=== PATIENT | male | born 2005 | race Caucasian/White ===

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

== ENCOUNTER 2024-01-31 10:46 | Emergency (ER) | payer MEDICAID ==
[~2024-01-31] VITALS: Ht 177.8 cm; Wt 96.5 kg
[~2024-01-31 10:46] MED LIST: ACET-1304 PO; AZITTAB PO; CEFD300C2 PO; NAP500T PO; PRED20TA2 PO; PSEU1SYP6 PO
[2024-01-31] MEDS ORDERED: BACDST PO (14:56)
[2024-01-31] MEDS ORDERED: IBUP-1455 PO (14:56)
[2024-01-31 15:06] VITALS: BP 127/74; PULSE 77; RESP 16; TEMP 98.5; O2SAT 96
[2024-01-31] MEDS: IBUPROFEN 800 MG TAB PO ONE (15:08)
== END 2024-01-31 15:07 | disposition home or self-care (01) ==
LOC: ER 10:46
DX: L05.01 Pilonidal cyst with abscess (principal); Z79.899 Other long term (current) drug therapy
CPT/HCPCS: 10060; 10080

== ENCOUNTER 2024-02-02 08:54 | Emergency (ER) | payer MEDICAID ==
[~2024-02-02] VITALS: Ht 177.8 cm; Wt 96.1 kg
[~2024-02-02 08:54] MED LIST changes: +BACDST PO; +IBUP-1455 PO
[2024-02-02 09:44] VITALS: BP 135/70; PULSE 80; RESP 16; TEMP 97.8; O2SAT 98
== END 2024-02-02 09:49 | disposition home or self-care (01) ==
LOC: ER 08:54
DX: Z48.00 Encounter for change or removal of nonsurgical wound dressing (principal)

== ENCOUNTER 2024-08-11 15:14 | Emergency (ER) | payer MEDICAID ==
[~2024-08-11] VITALS: Ht 180.3 cm; Wt 102.0 kg
[2024-08-11 15:26] VITALS: BP 131/86; PULSE 105; RESP 18; TEMP 98.1; O2SAT 100
--- NOTE | 2024-08-11 15:37 | ED.PDOC ---
Altered Mental Status HPI Comments HPI: Poor Historian. 19-year-old male brought in by ambulance for evaluation of suspected overdose. Per EMS, they picked him up from [place] front of [address] with the family was. They do not know exactly what he overdosed on. They gave the patient Narcan in the field 2.5 intranasally which helped him regained consciousness. Patient was initially unresponsive with stable vital signs. No history of fall or trauma. Per mom: No reported fall or trauma. Patient appeared to be altered and confused and almost unresponsive. Mom administered Narcan and with the ambulanc e arrived they administered another dose of Narcan intranasally. Patient was smoking a Bong with his cousin that had wax Past Medical History: Drug induced psychosis Past Surgical History: Denies any Patient vapes nicotine and smokes marijuana REVIEW OF SYSTEMS: CONSTITUTIONAL: Denies acute: fever, diaphoresis, chills, HEAD: Denies acute: headache, photophobia Eyes: Denies acute: Double vision, vision loss, eye pain, eye discharge. EARS: Denies acute: tinnitus, hearing loss, ear discharge, ear pain, THROAT: Denies acute: sore throat, swelling, difficulty swallowing , pain with swallowing, change in voice. NECK: Denies acute: neck pain, neck swelling, stiff neck. HEART: Denies acute : chest pain, palpitations, LUNGS: Denies acute: SOB, wheezing, cough, hemoptysis ABDOMEN: Denies acute: abdominal pain, Nausea, Vomiting, diarrhea, melena , hematemesis, hematochezia SKIN: Denies acute: rash, redness, lesions, itchiness. EXTREMITIES: Denies acute: calf pain, numbness, tingling, weakness, denies pain in extremity. Denies acute: Low back pain. Neuro: Denies acute: focal neurological deficit, motor or sensory focal neurological deficit, tremors, seizure like activity, loss of bowel or bladder function, cauda equina like symptoms. : Denies acute: dysuria, hematuria, flank pain, increase in urinary frequency. PSYCH: Denies acute: hallucination, suicidal ideation, homicidal ideation. PHYSICAL EXAM: General: no acute distress, awake and alert. Head: normocephalic, atraumatic. Neck: supple, trachea is midline, no swelling. Throat: Normal phonation. Eyes:, no erythema, no purulent discharge, no proptosis, no icterus. Heart: regular rate, regular rhythm, no significant murmur appreciated. Lungs: no apparent respiratory distress, No wheezing, no rhonchi, no crackles. No stridors Clear to auscultation bilaterally. Abdomen: non tender to palpation, non distended, soft, no guarding, no rebound, + bowel sounds. Neuro: Awake, Alert, oriented to name, self, situation, follows commands GCS=15. Speech is normal. Skin: no petechia, no purpura, no cyanosis, non-pale, not jaundice. Lower extremities: --no - Pitting edema no deformity, no focal swelling, no calf TTP. Makes eye contact. moves all four extremities. Face: no apparent facial droop. Stroke: finger to nose cerebellar testing is intact. No pronator drift. Symmetrical brush and broom clipper muscle strength b/l PERRLA, EOM-I CN 2-12 are grossly intact, Pedal pulses are palpable. No nystagmus. No nuchal rigidity, Kernig's sign, Brudzinski's sign, no meningeal signs. ED COURSE: Chief Complaint: Overdose Time Seen by MD: 15:15 Primary Care Provider: NONE Reviewed Notes: Nurses Notes, Medications, Allergies Allergies: Coded Allergies: NO KNOWN ALLERGIES (Unverified , 06/09/21) Home Meds Active Scripts Ibuprofen Micronized (Ibuprofen) 800 Mg Tab, 800 MG PO Q8HPRN PRN, #20 TAB Prov:FRANCISCO JONES [facility] 01/31/24 Sulfamethoxazole W/Trimethopri (Bactrim Ds Tablet) 1 Tab Tb, 1 TAB PO BID for 7 Days, #14 TAB Prov:FRANCISCO JONES [facility] 01/31/24 Naproxen (NAPROSYN TABLET) 500 Mg Tb, 1 TAB PO BID for 5 Days, #10 TAB 1 Refill Prov:DEANGELO FLOWERS MD 12/26/21 Cefdinir (Cefdinir) 300 Mg Cap, 1 CAP PO BID for 5 Days, #10 CAP Prov:DEANGELO FLOWERS MD 12/26/21 Acetaminophen (Tylenol Extra Strength) 500 Mg Tab, 500 MG PO Q4HP PRN for 10 Days, #50 TAB Prov:ADALI HAMILTON INTERVENTIONIST 06/09/21 Fghzezmlxbm-Dsxmcljx-Ae (Bromphen/Pseudoephedrine 30-2-10 mg/5Ml) 1 Syp Syp, 5 ML PO TID PRN for 10 Days, #240 ML Prov:ADALI HAMILTON INTERVENTIONIST 06/09/21 Prednisone (Prednisone) 20 Mg Tab, 40 MG PO DAILY for 5 Days, #10 TAB Prov:ADALI HAMILTON INTERVENTIONIST 06/09/21 Azithromycin (Zithromax Z-Cedrick) 250 Mg Tab, 250 MG PO take as directed for 5 D ays, #6 TAB Prov:ADALI HAMILTON INTERVENTIONIST 06/09/21 Information Source: Patient, Emergency Med Personnel Mode of Arrival: Ambulatory Past Medical History PAST MEDICAL HISTORY: Denies Surgical History: Denies all surgeries Family History Family History: Reviewed,noncontributory to illness, No family hx of Cancer, No family hx of DM, No family hx of Heart roger, No family hx of HTN, No family hx ofKidney roger, No family hx of Liver roger, No family hx of Lung roger, No family hx of Stroke Social History Smoker: Non-Smoker Alcohol: Denies ETOH Use Drugs: Denies Drug Use Lives In: Home Was a procedure done? Was a procedure done?: No Differential Diagnosis (ALOC) Differential Diagnosis: Dehydration, Hypoglycemia, DKA, Encephalopathy, Meningitis, Sepsis, Hypoxemia, Seizure, Closed Head Injury, CVA, Mass Lesion, SAH, Drug Overdose, ETOH Intoxication, Heart Failure, Renal Failure X-Ray, Labs, Meds, VS Vital Signs Date Time Temp Pulse Resp B/P (MAP) Pulse Ox O2 Delivery O2 Flow Rate FiO2 08/11/24 15:26 98.1 105 18 131/86 (101) 100 98.1 08/11/24 15:19 105 Lab Test 08/11/24 17:11 08/11/24 15:45 08/11/24 15:40 Range/Units Troponin I High Sensitivity 29 9 </=54 ng/L White Blood Count 9.0 4.4-10.8 10^3/uL Red Blood Count 4.98 4.5-5.90 10^6/uL Hemoglobin 14.9 13.5-17.5 g/dL Hematocrit 42.8 41.0-53.0 % Mean Corpuscular Volume 85.9 80.0-100.0 fL Mean Corpuscular Hemoglobin 29.9 28.0-32.0 pg Mean Corpuscular Hemoglobin Concent 34.8 32.0-36.0 g/dL Red Cell Distribution Width 13.2 11.8-14.3 % Platelet Count 236 140-450 10^3/uL Mean Platelet Volume 7.2 6.9-10.8 fL Neutrophils (%) (Auto) 69.0 37.0-80.0 % Lymphocytes (%) (Auto) 19.8 10.0-50.0 % Monocytes (%) (Auto) 5.8 0.0-12.0 % Eosinophils (%) (Auto) 4.9 0.0-7.0 % Basophils (%) (Auto) 0.5 0.0-2.0 % Neutrophils # (Auto) 6.2 1.6-8.6 10 ^3/uL Lymphocytes # (Auto) 1.8 0.4-5.4 10 ^3/uL Monocytes # (Auto) 0.5 0-1.3 10 ^3/uL Eosinophils # (Auto) 0.4 0-0.8 10 ^3/uL Basophils # (Auto) 0 0-0.2 10 ^3/uL Nucleated Red Blood Cells 0.1 % Sodium Level 139 136-145 mmol/L Potassium Level 4.3 3.5-5.1 mmol/L Chloride Level 105 98-107 mmol/L Carbon Dioxide Level 29 20-31 mmol/L Anion Gap 5 5-15 Blood Urea Nitrogen 11 9-23 mg/dL Creatinine 1.12 0.700-1.30 mg/dL Glomerular Filtration Rate Calc 96 >90 mL/min BUN/Creatinine Ratio 9.8 L 10.0-20.0 Serum Glucose 138 H 74-106 mg/dL Lactic Acid Level 1.9 0.4-2.0 mmol/L Calcium Level 9.7 8.7-10.4 mg/dL Magnesium Level 1.9 1.6-2.6 mg/dL Total Bilirubin 0.7 0.2-1.0 mg/dL Aspartate Amino Transferase (AST) 30 13-40 U/L Alanine Aminotransferase (ALT) 55 H 7-40 U/L Alkaline Phosphatase 68 46-116 U/L Total Protein 7.1 5.7-8.2 g/dL Albumin 4.4 3.2-4.8 g/dL Urine Color Light-yellow Yellow Urine Clarity Clear Clear Urine pH 6.0 5.0-9.0 Urine Specific [place] 1.021 1.001-1.035 Urine Protein 1+ H Negative Urine Ketones Negative Negative Urine Blood Negative Negative /uL Urine Nitrite Negative Negative Urine Bilirubin Negative Negative Urine Urobilinogen Normal Negative mg/dL Urine Leukocyte Esterase Negative Negative /uL Urine RBC <1 0 - 3 /hpf Urine Microscopic WBC 1 0-3 /HPF Urine Squamous Epithelial Cells None seen <5 /hpf Urine Bacteria None seen None Seen /hpf Urine Hyaline Casts Few 0 - 2 /lpf Urine Mucus Few None Seen Urine Glucose Normal Normal mg/dL Urine Opiates Screen Neg NEGATIVE Urine Fentanyl Screen Pos NEGATIVE Urine Barbiturates Screen Neg NEGATIVE Urine Phencyclidine Screen Neg NEGATIVE Urine Amphetamines Screen Neg NEGATIVE Urine Benzodiazepines Screen Neg NEGATIVE Urine Cocaine Screen Neg NEGATIVE Urine Cannabinoids Screen Pos NEGATIVE Current Medications Medications (Trade) Dose Ordered Sig/Ene Route Start Time Stop Time Status Last Admin Naloxone HCl (Narcan) 2 mg ONCE ONCE IV 08/11/24 15:30 08/11/24 15:31 DC 08/11/24 16:15 Sodium Chloride 1,000 ml @ 1,000 mls/hr Q1H ONCE IV 08/11/24 15:30 08/11/24 16:29 DC 08/11/24 16:01 Time of 1ST Reevaluation: 15:14 Reevaluation 1ST: Improved Patient Education/Counseling: Diagnosis, Treatment Family Education/Counseling: Other Comments Patient presented with the above HPI.---overdose---workup was initiated. patient was found with the above mentioned diagnosis. No reported head injury or trauma. the following medications were ordered: please refer to order lists of meds and tests obtained by myself Dr. Morales. Patient ED course and VS have been stabilized. Patient has been reassessed in the ED and remained in a stable condition. Pertinent incidental findings were discussed with the patient and/or family. Patient/family voices understanding and is agreeable with plan. Patient has been observed in the ED adequate length of time to insure improvement/stability. Escalation of care considered: Consideration of escalation to observation or admission Patient left against medical advice All the reports of any imaging studies that were ordered by myself were reviewed by myself. Departure 1 Departure Time of Disposition: 18:25 Impression: Primary Impression: Drug overdose Additional Impressions: Overdose of fentanyl Altered level of consciousness Left against medical advice Disposition: LEFT AGAINST MEDICAL ADVICE Condition: Guarded Additional Instructions: Left against medical advice Discharged With: Self Critical Care Note Critical Care Time?: Yes (35 min-critical care time only) SARI MORALES DO Aug 11, 2024 15:37
[2024-08-11] MEDS: SODIUM CHLORIDE 0.9% 1,000 ML IV ONE (16:01)
[2024-08-11 16:02] LABS: Basophils # (auto) 0 10 ^3/uL (0-0.2); Basophils % (auto) 0.5 % (0.0-2.0); Eosinophils # (auto) 0.4 10 ^3/uL (0-0.8); Eosinophils % (auto) 4.9 % (0.0-7.0); Hematocrit 42.8 % (41.0-53.0); Hemoglobin 14.9 g/dL (13.5-17.5); Lymphocytes # (auto) 1.8 10 ^3/uL (0.4-5.4); Lymphocytes % (auto) 19.8 % (10.0-50.0); Mean Corpuscular Hemoglobin 29.9 pg (28.0-32.0); Mean Corpuscular Hgb Conc. 34.8 g/dL (32.0-36.0); Mean Corpuscular Volume 85.9 fL (80.0-100.0); Monocytes # (auto) 0.5 10 ^3/uL (0-1.3); Monocytes % (auto) 5.8 % (0.0-12.0); Neutrophils # (auto) 6.2 10 ^3/uL (1.6-8.6); Nucleated Red Blood Cells % 0.1 %; Platelet Count (auto) 236 10^3/uL (140-450); Red Blood Cells 4.98 10^6/uL (4.5-5.90); Red Cell Distribution Width 13.2 % (11.8-14.3)
[2024-08-11] MEDS: NALOXONE HCL 1MG/ML 2ML SYRINGE IV ONE (16:15)
[2024-08-11 16:21] LABS: Albumin 4.4 g/dL (3.2-4.8); Alkaline Phosphatase 68 U/L (46-116); Anion Gap 5 (5-15); Aspartate Aminotransferase 30 U/L (13-40); BUN/Creatinine Ratio 9.8 (10.0-20.0); Blood Urea Nitrogen 11 mg/dL (9-23); Calcium 9.7 mg/dL (8.7-10.4); Carbon Dioxide 29 mmol/L (20-31); Chloride 105 mmol/L (98-107); Magnesium 1.9 mg/dL (1.6-2.6); Potassium 4.3 mmol/L (3.5-5.1); Sodium 139 mmol/L (136-145); Total Protein 7.1 g/dL (5.7-8.2)
[2024-08-11 16:22] LABS: Bilirubin, Total 0.7 mg/dL (0.2-1.0)
[2024-08-11 16:23] LABS: Alanine Aminotransferase 55 U/L (7-40); Glucose 138 mg/dL (74-106)
[2024-08-11 16:48] LABS: Urine Bacteria None Seen /hpf (None Seen)
[2024-08-11 16:58] LABS: Urine Blood Negative /uL (Negative); Urine Clarity Clear (Clear); Urine Color Light-Yellow (Yellow); Urine Hyaline Cast FEW /lpf (0 - 2); Urine Mucus FEW (None Seen); Urine Protein, UAD 1+ (Negative); Urine Specific Gravity 1.021 (1.001-1.035); Urine Squamous Epithelial Cell None Seen /hpf (<5); Urine Urobilinogen Normal (Negative); Urine WBC 1 /HPF (0-3)
[2024-08-11 17:07] LABS: Amphetamine Screen, Urine Neg (NEGATIVE)
[2024-08-11 17:08] LABS: Benzodiazephine Screen, Urine Neg (NEGATIVE); Cannabinoid Screen, Urine Pos (NEGATIVE)
[2024-08-11 17:49] LABS: Barbiturate Scree,Urine Neg (NEGATIVE); Cocaine Screen, Urine Neg (NEGATIVE); Opiate Scree,Urine Neg (NEGATIVE); Phencyclidine Screen, Urine Neg (NEGATIVE)
--- NOTE | 2024-08-12 20:13 | ECG ---
[facility] Test Date: 2024-08-11 Test Time: 15:19:52 Pat Name: PAPITO LOZANO Department: ER Room: Gender: M Sales Management Trainee: CAMRON : 2005 Requested By: SARI MORALES Order Number: [id number] Reading MD: Ty Villagomez Measurements Intervals [place] Rate: 105 P: 65 [place]: 154 QRS: 97 QRSD: 89 T: -14 QT: 313 QTc: 414 Interpretive Statements Sinus tachycardia Lateral infarct, acute Electronically Signed On 08-12-2024 20:42:36 PDT by Ty Villagomez Please click the below link to view image of tracing.
== END 2024-08-11 18:10 | disposition left against medical advice (07) ==
LOC: EDBD 15:14 → ER 15:17
DX: T40.411A Poisoning by fentanyl or fentanyl analogs, accidental (unintentional), initial encounter (principal); R41.82 Altered mental status, unspecified; F17.200 Nicotine dependence, unspecified, uncomplicated; F12.90 Cannabis use, unspecified, uncomplicated; Z79.52 Long term (current) use of systemic steroids; Z79.899 Other long term (current) drug therapy; Y92.89 Other specified places as the place of occurrence of the external cause
CPT/HCPCS: 36415; 80053; 80307; 81001; 82947; 83605; 83735; 84484; 85025; 93005; 96361; 96374; 99284; J2310; J7030

== ENCOUNTER 2024-08-20 16:20 | Emergency (ER) | payer MEDICAID ==
[~2024-08-20] VITALS: Ht 180.3 cm; Wt 100.0 kg
--- NOTE | 2024-08-20 16:39 | ED.PDOC ---
SOB-HPI HPI Comments 19 y.o male presents to the ED for a chief complaint of generalized weakness associated with palpitations x 2 days. Patient presents to triage with SPO2 in the low 80's on room air, shallowing breathing and cyanotic lips. Patient was placed on 10 liters of oxygen via mask with SPO2 of 97%. Patient reports daily frequent use of Fentanyl and last used 2 days ago. Patient reports he was playing basketball for 2 hours today, friends noticed patient pale and malaise looking. Mom brought patient in. Patient was recently seen at this ED around 08/11/24 for possible OD but AMA once regaining full consciousness s/p multiple Narcan administrated by EMS, family and nursing staff at the ED. Patient at this time denies any chest pain, fever, chills, nausea, vomiting. Chief Complaint: Palpitations Time Seen by MD: 16:26 Primary Care Provider: NONE Reviewed notes: Nurses Notes, Medications, Allergies Information Source: Patient Mode of Arrival: Ambulatory Severity: Moderate Timing: Hours Duration: Since onset Context: At Rest PE Risk Factors: None History of: None Modifying Factors: Nothing Associated Signs and Symptoms: Other Past Medical History PAST MEDICAL HISTORY: Denies Surgical History: Denies all surgeries Family History Family History: Reviewed,noncontributory to illness, No family hx of Cancer, No family hx of DM, No family hx of Heart roger, No family hx of HTN, No family hx ofKidney roger, No family hx of Liver roger, No family hx of Lung roger, No family hx of Stroke Social History Smoker: Cigarettes, Other (vape) Alcohol: Occasionally Drugs: Marijuana, Methamphetamine Lives In: Home Constitutional: reports: malaise; denies: chills, diaphoresis, fatigue, fever, sweats, weakness, others EENTM: denies: blurred vision, double vision, ear bleeding, ear discharge, ear drainage, ear pain, ear ringing, eye pain, eye redness, hearing loss, mouth pain, mouth swelling, nasal discharge, nose bleeding, nose congestion, nose pain, photophobia, tearing, throat pain, throat swelling, voice changes, others Respiratory: denies: cough, hemoptysis, orthopnea, SOB at rest, shortness of breath, SOB with excertion, stridor, wheezing, others Cardiovascular: reports: palpitations; denies: chest pain, dizzy spells, diaphoresis, Dyspnea on exertion, edema, irregular heart beat, left arm pain, lightheadedness, PND, syncope, others Gastrointestinal: denies: abdomen distended, abdominal pain, blood streaked bowels, constipated, diarrhea, dysphagia, difficulty swallowing, hematemesis, melena, nausea, poor appetite, poor fluid intake, rectal bleeding, rectal pain, vomiting, others Genitourinary: denies: burning, dysuria, flank pain, frequency, hematuria, incontinence, penile discharge, penile sore, pain, testicle pain, testicle swelling, urgency, others Neurological: denies: dizziness, fainting, headache, left sided numbness, left sided weakness, numbness, paresthesia, pre-existing deficit, right sided numbness, right sided weakness, seizure, speech problems, tingling, tremors, weakness, others Musculoskeletal: denies: back pain, gout, joint pain, joint swelling, muscle pain, muscle stiffness, neck pain, others Integumetry: denies: bruises, change in color, change in hair/nails, dryness, laceration, lesions, lumps, rash, wounds, others Allergic/Immunocompromised: denies: Difficulty Healing, Frequent Infections, Hives, Itching, others Hematologic/Lymphatic: denies: anemia, blood clots, easy bleeding, easy bruising, swollen glands, others Endocrine: denies: excessive hunger, excessive sweating, excessive thirst, excessive urination, flushing, intolerance to cold, intolerance to heat, unexplained weight gain, unexplained weight loss, others Psychiatric: denies: anxiety, bipolar disorder, depression, hopeless, panic disorder, schizophrenia, sleepless, suicidal, others All Other Systems: Reviewed and Negative Physical Exam General Appearance: Other (The patient was somewhat sleepy upon arrival) HEENT: Normal ENT Inspection, Pharynx Normal, TMs Normal Neck: Full Range of Motion, Non-Tender, Normal, Normal Inspection Respiratory: Chest Non-Tender, Lungs Clear, No Accessory Muscle Use, No Respiratory Distress, Normal Breath Sounds Cardiovascular: No Edema, No JVD, No Murmur, No Gallop, Normal Peripheral Pulses, Regular Rate/Rhythm Breast Exam: Deferred Gastrointestinal: No Organomegaly, Non Tender, No Pulsatile Mass, Normal Bowel Sounds, Soft Genitalia: Deferred Pelvic: Deferred Rectal: Deferred Extremities: No calf tenderness, Normal capillary refill, Normal inspection, Normal range of motion, Non-tender, No pedal edema Musculoskeletal : Apperance: Normal Neurologic: Alert, 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 Was a procedure done?: No Differential Dx Differential Diagnosis: Hyperventilation, Respiratory Distress, URI Comments Drug toxicity, Drug overdose, tachycardia, hypoxemia X-Ray, Labs, Meds, VS Vital Signs Date Time Temp Pulse Resp B/P (MAP) Pulse Ox O2 Delivery O2 Flow Rate FiO2 08/20/24 18:38 102 08/20/24 18:00 94 20 118/63 (81) 97 08/20/24 17:18 108 08/20/24 16:46 97.6 126 12 106/54 (71) 97 97.6 08/20/24 16:46 127 12 97 Simple Mask* 8 60 08/20/24 16:39 104 08/20/24 16:31 97.9 115 12 110/65 (80) 83 97.9 08/20/24 16:25 104 Lab Test 08/20/24 16:32 Range/Units White Blood Count 8.7 4.4-10.8 10^3/uL Red Blood Count 5.07 4.5-5.90 10^6/uL Hemoglobin 15.0 13.5-17.5 g/dL Hematocrit 43.4 41.0-53.0 % Mean Corpuscular Volume 85.6 80.0-100.0 fL Mean Corpuscular Hemoglobin 29.6 28.0-32.0 pg Mean Corpuscular Hemoglobin Concent 34.6 32.0-36.0 g/dL Red Cell Distribution Width 12.9 11.8-14.3 % Platelet Count 288 140-450 10^3/uL Mean Platelet Volume 7.4 6.9-10.8 fL Neutrophils (%) (Auto) 58.5 37.0-80.0 % Lymphocytes (%) (Auto) 28.8 10.0-50.0 % Monocytes (%) (Auto) 4.7 0.0-12.0 % Eosinophils (%) (Auto) 7.1 H 0.0-7.0 % Basophils (%) (Auto) 0.9 0.0-2.0 % Neutrophils # (Auto) 5.1 1.6-8.6 10 ^3/uL Lymphocytes # (Auto) 2.5 0.4-5.4 10 ^3/uL Monocytes # (Auto) 0.4 0-1.3 10 ^3/uL Eosinophils # (Auto) 0.6 0-0.8 10 ^3/uL Basophils # (Auto) 0.1 0-0.2 10 ^3/uL Nucleated Red Blood Cells 0.1 % Urine Color Yellow Yellow Urine Clarity Turbid H Clear Urine pH 6.0 5.0-9.0 Urine Specific [place] 1.025 1.001-1.035 Urine Protein 1+ H Negative Urine Ketones Trace Negative Urine Blood Negative Negative /uL Urine Nitrite Negative Negative Urine Bilirubin Negative Negative Urine Urobilinogen Normal Negative mg/dL Urine Leukocyte Esterase Negative Negative /uL Urine RBC 1 0 - 3 /hpf Urine Microscopic WBC 3 0-3 /HPF Urine Squamous Epithelial Cells Few <5 /hpf Urine Bacteria None seen None Seen /hpf Urine Hyaline Casts Few 0 - 2 /lpf Urine Granular Casts Few 0 /lpf Urine Mucus Few None Seen Urine Glucose Trace Normal mg/dL Sodium Level 138 136-145 mmol/L Potassium Level 4.4 3.5-5.1 mmol/L Chloride Level 99 98-107 mmol/L Carbon Dioxide Level 30 20-31 mmol/L Anion Gap 9 5-15 Blood Urea Nitrogen 12 9-23 mg/dL Creatinine 1.71 H 0.700-1.30 mg/dL Glomerular Filtration Rate Calc 58 >90 mL/min BUN/Creatinine Ratio 7.0 L 10.0-20.0 Serum Glucose 182 H 74-106 mg/dL Calcium Level 10.0 8.7-10.4 mg/dL Total Bilirubin 1.0 0.2-1.0 mg/dL Aspartate Amino Transferase (AST) 49 H 13-40 U/L Alanine Aminotransferase (ALT) 78 H 7-40 U/L Alkaline Phosphatase 72 46-116 U/L Troponin I High Sensitivity 14 </=54 ng/L Total Protein 7.8 5.7-8.2 g/dL Albumin 4.8 3.2-4.8 g/dL Urine Opiates Screen Neg NEGATIVE Urine Fentanyl Screen Pos NEGATIVE Urine Barbiturates Screen Neg NEGATIVE Urine Phencyclidine Screen Neg NEGATIVE Urine Amphetamines Screen Neg NEGATIVE Urine Benzodiazepines Screen Neg NEGATIVE Urine Cocaine Screen Neg NEGATIVE Urine Cannabinoids Screen Pos NEGATIVE Plasma/Serum Blood Alcohol < 3.0 <10 mg/dL CHEST RADIOGRAPH IMPRESSION: 1. No acute disease. The patient's urine tox is positive for fentanyl and marijuana The patient was urine test is negative for infection The chemistry panel is within normal limits except for mild hyperglycemia The patient CBC is within normal limits At this time, the patient was being discharged and will follow up with the primary care doctor The patient was given substance abuse counseling The patient was now awake and alert and able to answer questions. Images Reviewed?: Images reviewed and evaluated by me Time of 1ST Reevaluation: 16:33 Reevaluation 1ST: Unchanged Patient Education/Counseling: Diagnosis, Treatment, Prognosis, Need For Follow Up Family Education/Counseling: No Family Present Departure 1 Departure Time of Disposition: 19:59 Impression: Primary Impression: Polysubstance abuse Disposition: 01 HOME / SELF CARE / HOMELESS Condition: Fair Discharged With: Self Critical Care Note Critical Care Time?: No Stability Stability form required: No I personally scribed for RJ DUBOSE MD ([email or web address]) on 08/20/24 at 16:39. Electronically submitted by Dee Mohan ([facility] I personally scribed for RJ DUBOSE MD ([email or web address]) on 08/20/24 at 19:31. Electronically submitted by Dee Mohan ([facility] RJ DUBOSE MD Aug 20, 2024 16:39
[2024-08-20 16:46] VITALS: PULSE 127; RESP 12; O2SAT 97
[2024-08-20 17:06] LABS: Basophils # (auto) 0.1 10 ^3/uL (0-0.2); Basophils % (auto) 0.9 % (0.0-2.0); Eosinophils # (auto) 0.6 10 ^3/uL (0-0.8); Eosinophils % (auto) 7.1 % (0.0-7.0); Hematocrit 43.4 % (41.0-53.0); Lymphocytes # (auto) 2.5 10 ^3/uL (0.4-5.4); Lymphocytes % (auto) 28.8 % (10.0-50.0); Mean Corpuscular Hemoglobin 29.6 pg (28.0-32.0); Mean Corpuscular Hgb Conc. 34.6 g/dL (32.0-36.0); Mean Corpuscular Volume 85.6 fL (80.0-100.0); Monocytes # (auto) 0.4 10 ^3/uL (0-1.3); Monocytes % (auto) 4.7 % (0.0-12.0); Neutrophils # (auto) 5.1 10 ^3/uL (1.6-8.6); Neutrophils % (auto) 58.5 % (37.0-80.0); Nucleated Red Blood Cells % 0.1 %; Platelet Count (auto) 288 10^3/uL (140-450); Red Blood Cells 5.07 10^6/uL (4.5-5.90); Red Cell Distribution Width 12.9 % (11.8-14.3); White Blood Cell 8.7 10^3/uL (4.4-10.8)
[2024-08-20 17:07] LABS: Albumin 4.8 g/dL (3.2-4.8); Alkaline Phosphatase 72 U/L (46-116); Anion Gap 9 (5-15); Blood Urea Nitrogen 12 mg/dL (9-23); Carbon Dioxide 30 mmol/L (20-31); Chloride 99 mmol/L (98-107); Potassium 4.4 mmol/L (3.5-5.1); Sodium 138 mmol/L (136-145); Total Protein 7.8 g/dL (5.7-8.2)
--- NOTE | 2024-08-20 17:10 | DVH ---
CHEST RADIOGRAPH Indication: aloc Technique: Single frontal view of the chest was obtained COMPARISON: None FINDINGS: Lines and Tubes: None Lungs: Clear Pleura: No effusion. No pneumothorax. Cardiomediastinal contours: Unremarkable Bones: Unremarkable IMPRESSION: 1. No acute disease.
[2024-08-20 17:19] LABS: Glucose 182 mg/dL (74-106)
[2024-08-20 17:20] LABS: Alanine Aminotransferase 78 U/L (7-40); Aspartate Aminotransferase 49 U/L (13-40); Blood Alcohol < 3.0 mg/dL (<10)
--- NOTE | 2024-08-20 17:21 | ECG ---
[facility] Test Date: 2024-08-20 Test Time: 17:18:56 Pat Name: PAPITO LOZANO Department: ED Room: Gender: M Securities Supervisor: ROX : 2005 Requested By: RJ DUBOSE Order Number: [id number] Reading MD: Ty Villagomez Measurements Intervals [place] Rate: 108 P: 54 [place]: 133 QRS: 84 QRSD: 91 T: -6 QT: 324 QTc: 435 Interpretive Statements Sinus tachycardia Borderline T abnormalities, inferior leads Baseline wander in lead(s) II,V3 Electronically Signed On 08-23-2024 13:25:43 PDT by Ty Villagomez Please click the below link to view image of tracing.
[2024-08-20 18:37] LABS: Urine Bacteria None Seen /hpf (None Seen)
[2024-08-20 18:52] LABS: Urine Blood Negative /uL (Negative); Urine Clarity Turbid (Clear); Urine Color Yellow (Yellow); Urine Hyaline Cast FEW /lpf (0 - 2); Urine Mucus FEW (None Seen); Urine Protein, UAD 1+ (Negative); Urine Specific Gravity 1.025 (1.001-1.035); Urine Squamous Epithelial Cell FEW /hpf (<5); Urine Urobilinogen Normal (Negative); Urine WBC 3 /HPF (0-3)
[2024-08-20 18:59] LABS: Amphetamine Screen, Urine Neg (NEGATIVE); Benzodiazephine Screen, Urine Neg (NEGATIVE); Cannabinoid Screen, Urine Pos (NEGATIVE)
[2024-08-20 19:06] LABS: Barbiturate Scree,Urine Neg (NEGATIVE); Cocaine Screen, Urine Neg (NEGATIVE); Opiate Scree,Urine Neg (NEGATIVE); Phencyclidine Screen, Urine Neg (NEGATIVE)
[2024-08-20 20:00] VITALS: BP 121/65; TEMP 97.6
[2024-08-20 20:15] VITALS: PULSE 88; RESP 20; O2SAT 94
--- NOTE | 2024-08-23 09:20 | ECG ---
[facility] Test Date: 2024-08-21 Test Time: 22:56:38 Pat Name: PAPITO LOZANO Department: ED Room: Gender: M Strategic Planning Specialist: ED : 2005 Requested By: RJ DUBOSE Order Number: [id number] Reading MD: Ty Villagomez Measurements Intervals [place] Rate: 112 P: 139 NC: 139 QRS: 122 QRSD: 92 T: -28 QT: 337 QTc: 460 Interpretive Statements Sinus or ectopic atrial tachycardia Probable left atrial enlargement Left posterior fascicular block Inferior infarct, age indeterminate Lateral infarct, acute (LAD) Baseline wander in lead(s) V1 Electronically Signed On 08-23-2024 14:06:19 PDT by Ty Villagomez Please click the below link to view image of tracing.
== END 2024-08-20 20:25 | disposition home or self-care (01) ==
LOC: ER 16:20
DX: F19.10 Other psychoactive substance abuse, uncomplicated (principal); F17.290 Nicotine dependence, other tobacco product, uncomplicated; F12.90 Cannabis use, unspecified, uncomplicated; R53.1 Weakness; R00.2 Palpitations; Z79.899 Other long term (current) drug therapy
CPT/HCPCS: 36415; 71045; 80053; 80307; 80320; 81001; 84484; 85025; 93005

== ENCOUNTER 2024-08-21 22:39 | Inpatient (IN) | payer MEDICAID ==
[~2024-08-21] VITALS: Ht 177.8 cm; Wt 99.4 kg
[2024-08-21 23:07] VITALS: PULSE 112; RESP 17; O2SAT 88
[2024-08-21] MEDS: NALOXONE HCL 1MG/ML 2ML SYRINGE IV ONE (23:10)
[2024-08-21] MEDS: ONDANSETRON HCL 4 MG/2 ML VIAL ONE (23:12)
[2024-08-21] MEDS: methylPREDNISolone SOD SUCC 125 MG/2 ML VL ONE (23:13)
[2024-08-21] MEDS: ONDANSETRON HCL 4 MG/2 ML VIAL IV ONE (23:14)
[2024-08-21] MEDS: methylPREDNISolone SOD SUCC 125 MG/2 ML VL IV ONE (23:16)
[2024-08-21] MEDS: SODIUM CHLORIDE 0.9% 1,000 ML IV ONE (23:16)
--- NOTE | 2024-08-22 00:01 | DVH ---
CHEST RADIOGRAPH Indication: SOB Technique: Single frontal view of the chest was obtained COMPARISON: XY CHEST PORTABLE on DOS: 08/20/24 FINDINGS: Lines and Tubes: None Lungs: Lung volumes are low with mild bibasilar subsegmental atelectasis. Pleura: No effusion. No pneumothorax. Cardiomediastinal contours: Unremarkable Bones: Unremarkable IMPRESSION: Low lung volumes. Mild bibasilar subsegmental atelectasis.
--- NOTE | 2024-08-22 03:53 | ED.PDOC ---
History of Present Illness HPI Comments 19 y/o obese M, with a history of polysubstance abuse, is BIBA for c/o ALOC w/decrease responsiveness s/p substance overdose, today. Per EMS report, patient's family called after finding patient in altered state, earlier, this evening. Patient was noted to have been found on scene with family performing CPR amidst pulse present and patient haivng agonal breathing and a SpO2 of 75%RA. EMS then endorses on giving the patient 2mg Narcan IV, with positive response, and placing him on 15LPM NRB en route. Upon arrival to ED, tia admitst to Fentanyl use, earlier, with no other reported associated symptoms at this time. Chief Complaint: Overdose Time Seen by MD: 23:10 Primary Care Provider: unknown Reviewed Notes: Nurses Notes, Insurance Administrative Assistant Notes, Medications, Allergies Allergies: Coded Allergies: NO KNOWN ALLERGIES (Unverified , 06/09/21) Home Meds Active Scripts Ibuprofen Micronized (Ibuprofen) 800 Mg Tab, 800 MG PO Q8HPRN PRN, #20 TAB Prov:FRANCISCO JONES PAC 01/31/24 Sulfamethoxazole W/Trimethopri (Bactrim Ds Tablet) 1 Tab Tb, 1 TAB PO BID for 7 Days, #14 TAB Prov:FRANCISCO JONES PAC 01/31/24 Naproxen (NAPROSYN TABLET) 500 Mg Tb, 1 TAB PO BID for 5 Days, #10 TAB 1 Refill Prov:DEANGELO FLOWERS MD 12/26/21 Cefdinir (Cefdinir) 300 Mg Cap, 1 CAP PO BID for 5 Days, #10 CAP Prov:DEANGELO FLOWERS MD 12/26/21 Acetaminophen (Tylenol Extra Strength) 500 Mg Tab, 500 MG PO Q4HP PRN for 10 Days, #50 TAB Prov:ADALI HAMILTON ADMITTING OFFICER 06/09/21 Ehtiswfyacy-Hwljcakr-Bx (Bromphen/Pseudoephedrine 30-2-10 mg/5Ml) 1 Syp Syp, 5 ML PO TID PRN for 10 Days, #240 ML Prov:ADALI HAMILTON ADMITTING OFFICER 06/09/21 Prednisone (Prednisone) 20 Mg Tab, 40 MG PO DAILY for 5 Days, #10 TAB Prov:ADALI HAMILTON ADMITTING OFFICER 06/09/21 Azithromycin (Zithromax Z-Cedrick) 250 Mg Tab, 250 MG PO take as directed for 5 Days, #6 TAB Prov:ADALI HAMILTON ADMITTING OFFICER 06/09/21 Information Source: Patient, Emergency Med Personnel Mode of Arrival: EMS Severity: Moderate Timing: Hours Duration: Since onset Prehospital treatment: 12 Lead EKG, Accucheck, [employer] Operator, Other (Narcan ) Past Medical History Past Medical History (Other): obesity Surgical History: Denies all surgeries Family History Family History: Reviewed,noncontributory to illness, No family hx of Cancer, No family hx of DM, No family hx of Heart roger, No family hx of HTN, No family hx ofKidney roger, No family hx of Liver roger, No family hx of Lung roger, No family hx of Stroke Social History Smoker: Cigarettes, Other (vape ) Alcohol: Occasionally Drugs: Marijuana, Methamphetamine, Other (Fentanly) Lives In: Home All Other Systems: Reviewed and Negative (Comprehensive systems review obtained and negative except for what is stated in the HPI.) Physical Exam General Appearance: No Apparent Distress, Obese HEENT: Normal ENT Inspection, Pharynx Normal, TMs Normal Neck: Full Range of Motion, Non-Tender, Normal, Normal Inspection Respiratory: Other (hypoxic ) Cardiovascular: No Edema, No JVD, No Murmur, No Gallop, Normal Peripheral Pulses, Regular Rate/Rhythm Breast Exam: Deferred Gastrointestinal: No Organomegaly, Non Tender, No Pulsatile Mass, Normal Bowel Sounds, Soft Genitalia: Deferred Pelvic: Deferred Rectal: Deferred Extremities: No calf tenderness, Normal capillary refill, Normal inspection, Normal range of motion, Non-tender, No pedal edema Musculoskeletal : Extremity Location: Chest (chest wall ) Apperance: Normal, Tenderness Neurologic: Alert, sheet cutter II-XII nml as Tested, No Motor Deficits, Normal Affect, Normal Mood, No Sensory Deficits Cerebellar Function: Normal Reflexes: Normal Skin: Dry, Pallor, Warm, Other (erythema to chest wall ) Lymphatic: No Adenopathy Was a procedure done? Was a procedure done?: No Differential Dx Considerations may include: opioid overdose, substance abuse, toxic metabolic encephalopathy X-Ray, Labs, Meds, VS Vital Signs Date Time Temp Pulse Resp B/P (MAP) Pulse Ox O2 Delivery O2 Flow Rate FiO2 08/22/24 02:00 73 16 106/51 (69) 94 3/25/25 23:32 97.9 108 12 137/82 (100) 97 97.9 08/21/24 23:07 97.7 112 17 120/73 (89) 88 97.7 08/21/24 23:07 112 17 88 Non-Rebreather 15 N/A 08/21/24 22:50 99.1 119 32 113/76 (88) 90 99.1 Lab Test 08/22/24 05:11 Range/Units White Blood Count 15.0 #H 4.4-10.8 10^3/uL Red Blood Count 5.48 4.5-5.90 10^6/uL Hemoglobin 16.2 13.5-17.5 g/dL Hematocrit 46.5 41.0-53.0 % Mean Corpuscular Volume 84.9 80.0-100.0 fL Mean Corpuscular Hemoglobin 29.5 28.0-32.0 pg Mean Corpuscular Hemoglobin Concent 34.8 32.0-36.0 g/dL Red Cell Distribution Width 12.6 11.8-14.3 % Platelet Count 299 140-450 10^3/uL Mean Platelet Volume 7.4 6.9-10.8 fL Neutrophils (%) (Auto) 94.3 H 37.0-80.0 % Lymphocytes (%) (Auto) 3.0 L 10.0-50.0 % Monocytes (%) (Auto) 2.3 0.0-12.0 % Eosinophils (%) (Auto) 0.2 0.0-7.0 % Basophils (%) (Auto) 0.2 0.0-2.0 % Neutrophils # (Auto) 14.2 H 1.6-8.6 10 ^3/uL Lymphocytes # (Auto) 0.4 0.4-5.4 10 ^3/uL Monocytes # (Auto) 0.3 0-1.3 10 ^3/uL Eosinophils # (Auto) 0 0-0.8 10 ^3/uL Basophils # (Auto) 0 0-0.2 10 ^3/uL Nucleated Red Blood Cells 0.1 % Sodium Level Pending Potassium Level Pending Chloride Level Pending Carbon Dioxide Level Pending Anion Gap Pending Blood Urea Nitrogen Pending Creatinine Pending Glomerular Filtration Rate Calc Pending BUN/Creatinine Ratio Pending Serum Glucose Pending Lactic Acid Level Pending Calcium Level Pending Current Medications Medications (Trade) Dose Ordered Sig/Ene Route Start Time Stop Time Status Last Admin Sodium Chloride 1,000 ml @ 1,000 mls/hr Q1H ONCE IV 08/22/24 00:00 08/22/24 03:41 DC 08/21/24 23:16 Naloxone HCl (Narcan) 2 mg ONCE ONCE IV 08/22/24 03:45 08/22/24 03:46 DC 08/21/24 23:10 Ondansetron HCl (Zofran) 4 mg ONCE ONCE IV 08/22/24 03:45 08/22/24 03:46 DC 08/21/24 23:14 Methylprednisolone Sodium Succinate (Solu Medrol) 125 mg ONCE ONCE IV 08/22/24 03:45 08/22/24 03:46 DC 08/21/24 23:16 [place] [id number] Ph: [phone] DIAGNOSTIC IMAGING Diagnostic Imaging Report : [id number] Signed PATIENT: PAPITO LOZANO ACCT: [id number] UNIT: [id number] : 2005 LOC: ER ROOM / BED: / AGE / SEX: 19 / M ADM STATUS: REG ER SERVICE 24 ORDERING PHYSICIAN: FRANCISCO JONES PAC PROCEDURE(s): CXRP - CHEST PORTABLE REASON: SOB ORDER NUMBER(s): [id number], ACCESSION NUMBER(s): [id number] CHEST RADIOGRAPH Indication: SOB Technique: Single frontal view of the chest was obtained COMPARISON: XY CHEST PORTABLE on DOS: 08/20/24 FINDINGS: Lines and Tubes: None Lungs: Lung volumes are low with mild bibasilar subsegmental atelectasis. Pleura: No effusion. No pneumothorax. Cardiomediastinal contours: Unremarkable Bones: Unremarkable IMPRESSION: Low lung volumes. Mild bibasilar subsegmental atelectasis. ATED BY: MIKEY RODRIGUEZ MD DICTATED DATE/TIME: 08/21/24 9997 SIGNED BY: MIKEY RODRIGUEZ MD SIGNED DATE/TIME: 08/21/24 8588 CC: Time of 1ST Reevaluation: 23:30 Reevaluation 1ST: Unchanged Patient Education/Counseling: Diagnosis, Treatment Family Education/Counseling: Diagnosis, Treatment Additional Information Previous visit documents reviewed: August 20, 2024 encounter for polysubstance abuse The following tests were ordered, and results were reviewed by me: CXR Additional Information was gathered from interviewing the following independent historians: EMS, family I reviewed and agreed with the following test results read by other providers: CXR I discussed treatment and results with medical personnel and: Patient, family Departure 1 Departure Time of Disposition: 05:50 (Patient presented as a opiate overdose unresponsive and hypoxic even on a regular. Patient received multiple rounds of Narcan began breathing in. Patient had a lot of emesis. Patient required a non-rebreather for several hours until was being able to transition to a nasal cannula. Patient is still hypoxic on room air. I am concern for aspiration we will empirically cover patient with antibiotics and admit patient for further workup) Impression: Primary Impression: Opiate overdose Qualified Codes: T40.601A - Poisoning by unspecified narcotics, accidental (unintentional), initial encounter Additional Impressions: Aspiration into respiratory tract Qualified Codes: T17.908A - Unspecified foreign body in respiratory tract, part unspecified causing other injury, initial encounter Acute respiratory failure Qualified Codes: J96.01 - Acute respiratory failure with hypoxia Disposition: ADMITTED INPATIENT Admit to: Med Surg Condition: Serious Critical Care Note Critical Care Time?: Yes Critical care comment: Acute hypoxic respiratory failure secondary to overdose Authorized and Performed by: Renata Haywood MD Total critical care time: Approximately 143 minutes Due to a high probability of clinically significant, life threatening d eterioration, the patient required my highest level of preparedness to intervene emergently and I personally spent this critical care time directly and personally managing the patient. This critical care time included obtaining a history; examining the patient; pulse oximetry; ordering and review of studies; arranging urgent treatment with development of a management plan; evaluation of patient's response to treatment; frequent reassessment; and, discussions with other providers. This critical care time was performed to assess and manage the high probability of imminent, life-threatening deterioration that could result in multi-organ failure. It was exclusive of separately billable procedures and treating other patients and teaching time. Please see my other sections and the rest of the note for further information on patient assessment and treatment. Stability Stability form required: No Heart Score Heart Score: Heart Score Response (Comments) Value History N/A 0 EKG N/A 0 Age N/A 0 Risk Factors N/A 0 Troponin N/A 0 Total 0 I personally scribed for RENATA HAYWOOD MD ([email or web address]) on 08/22/24 at 03:53. Electronically submitted by Chandu Goodwin ([email or web address]). I personally scribed for RENATA HAYWOOD MD ([email or web address]) on 08/22/24 at 03:54. Electronically submitted by Chandu Goodwin ([email or web address]). RENATA HAYWOOD MD Aug 22, 2024 03:53
[2024-08-22 05:33] LABS: Basophils # (auto) 0 10 ^3/uL (0-0.2); Basophils % (auto) 0.2 % (0.0-2.0); Eosinophils # (auto) 0 10 ^3/uL (0-0.8); Eosinophils % (auto) 0.2 % (0.0-7.0); Hematocrit 46.5 % (41.0-53.0); Hemoglobin 16.2 g/dL (13.5-17.5); Lymphocytes # (auto) 0.4 10 ^3/uL (0.4-5.4); Mean Corpuscular Hemoglobin 29.5 pg (28.0-32.0); Mean Corpuscular Hgb Conc. 34.8 g/dL (32.0-36.0); Mean Corpuscular Volume 84.9 fL (80.0-100.0); Monocytes # (auto) 0.3 10 ^3/uL (0-1.3); Monocytes % (auto) 2.3 % (0.0-12.0); Neutrophils # (auto) 14.2 10 ^3/uL (1.6-8.6); Neutrophils % (auto) 94.3 % (37.0-80.0); Nucleated Red Blood Cells % 0.1 %; Platelet Count (auto) 299 10^3/uL (140-450); Red Blood Cells 5.48 10^6/uL (4.5-5.90); Red Cell Distribution Width 12.6 % (11.8-14.3)
[2024-08-22 05:38] LABS: Chloride 102 mmol/L (98-107)
[2024-08-22 05:39] LABS: Anion Gap 5 (5-15); Carbon Dioxide 28 mmol/L (20-31)
[2024-08-22 05:40] LABS: Calcium 10.3 mg/dL (8.7-10.4)
[2024-08-22 05:45] LABS: BUN/Creatinine Ratio 10.5 (10.0-20.0); Blood Urea Nitrogen 11 mg/dL (9-23)
[2024-08-22 05:53] LABS: Glucose 158 mg/dL (74-106); Sodium 135 mmol/L (136-145)
[2024-08-22 05:54] LABS: Potassium 5.7 mmol/L (3.5-5.1)
[2024-08-22] MEDS: AZITHROMYCIN 250 MG TAB PO ONE (06:13)
[2024-08-22] MEDS: CEFEPIME 2GM/50ML NS 50 ML IV ONE (06:13)
[2024-08-22] MEDS: SODIUM BICARB 8.4% 50Meq/50ml SYR Vial IV ONE (06:18)
[2024-08-22] MEDS: DEXTROSE (50%) 50ML SYRG IV ONE (06:19)
[2024-08-22] MEDS: InsuLIN REG 1unit/0.01ml Soln (100units/ml) IV ONE (06:20)
[2024-08-22] MEDS: CALCIUM GLUC 1,000mg/50ml-NS 50 ML IV SCH (06:21)
[2024-08-22] MEDS ORDERED: NITROGLYCERIN 0.4 MG SL TAB SL PRN (09:15)
[2024-08-22] MEDS ORDERED: ONDANSETRON HCL 4 MG/2 ML VIAL IV PRN (09:15)
[2024-08-22] MEDS ORDERED: MORPHINE SULFATE INJ 2 MG/ml SYRG IV PRN (09:15)
[2024-08-22] MEDS ORDERED: DOCUSATE SOD 100 MG CAP PO PRN (09:15)
[2024-08-22] MEDS ORDERED: ACETAMINOPHEN 325 MG TAB PO PRN (09:15)
--- NOTE | 2024-08-22 09:43 | DVHHP2 ---
History of Present Illness Reason for Visit: Opiate overdose History of Present Illness Alaina Aaron is a 19-year-old male with past medical history of anxiety and drug induced psychosis, who came in for a fentanyl overdose. Family states they found him unconscious in his room with agonal respirations. They initiated CPR and called EMS. When EMS arrived his oxygenation was in the 70sm Narcan was given, and patient began to respond. He was placed on 15L nonrebreather and brought to ER. In ER patient received another dose of Narcan. ER attempted multiple times to wean patient off supplemental oxygen without success. On assessment patient is now A&O x 4, able to tell me that he remembers snorting fentanyl, taking a shower, then blacking out in bed. He states he has just started trying fentanyl this week. He last used marijuana last week, and methamphetamines about 2 months ago. Also states he is a current cigarette smoker and uses nicotine vape daily. I spoke with the patient's Mother. She states that he use to methamphetamines, and was sober for about 1 year. He now lives with his Grandmother, so she is not around him all the time. Patient has been seen here twice in the last 2 weeks for fentanyl overdose. Psych: Anxiety, Other (drug induced psychosis) Past Surgical History: None Family History: None Smoke: <1 pack per day (and vape) ALCOHOL: none Drugs: Marijuana, Other (fentanyl, methamphetamines about 2 months ago) Lives: with Family Review of Systems Constitutional: Yes: Other (Opiate overdose ); No: Fever, Chills, Sweats, Weakness, Malaise Eyes: No: Pain, Vision change, Conjunctivae inflammation, Eyelid inflammation, Other, Redness ENT: No: Ear pain, Ear discharge, Nose pain, Nose discharge, Nose congestion, Mouth pain, Mouth swelling, Throat pain, Throat swelling, Other Respiratory: No: Cough, Dry, Shortness of breath, SOB with excertion, Wheezing, Hemoptysis, Pleuritic Pain, Sputum, Wheezing, Other Cardiovascular: No: Chest Pain, Palpitations, Orthopnea, Paroxysmal Noc. Dyspnea, Edema, Lt Headedness, Other Gastrointestinal: No: Nausea, Vomiting, Abdominal Pain, Diarrhea, Constipation, Melena, Hematochezia, Other Genitourinary: No Dysuria, No Frequency, No Incontinence, No Hematuria, No Retention, No Other Musculoskeletal: No: other, neck pain, shoulder pain, arm pain, back pain, hand pain, leg pain, foot pain Skin: No: Rash, Lesions, Jaundice, Bruising, Other Neurological: Weakness, Incoordination, Change in speech, Confusion, Other (Opiate overdose ); No: Numbness, Seizures Allergies: Coded Allergies: NO KNOWN ALLERGIES (Unverified , 06/09/21) Exam Vital Signs Vital Signs Date Time Temp Pulse Resp B/P (MAP) Pulse Ox O2 Delivery O2 Flow Rate FiO2 08/22/24 07:16 67 10 124/60 (81) 96 08/22/24 07:16 Nasal Cannula* 4 36 08/21/24 23:32 97.9 97.9 General Appearance: Alert, Oriented X3, Cooperative, mild distress HEENT: Atraumatic, PERRLA Respiratory: Clear to auscultation, Normal air movement Cardiovascular: Regular rate, Normal S1, Normal S2 Abdominal: Normal bowel sounds, Soft, No tenderness Extremities: No clubbing, No cyanosis, No edema, Normal pulses Skin: No rashes, No breakdown, No significant lesion Neuro: Normal gait, Normal speech, Strength at 5/5 X4 ext, Normal tone Psych/Mental Status: Mental status NL, Mood NL Labs/Xrays Labs Test 08/22/24 06:07 08/22/24 05:11 Range/Units POC Glucose 171 H 70-106 mg/dl White Blood Count 15.0 #H 4.4-10.8 10^3/uL Red Blood Count 5.48 4.5-5.90 10^6/uL Hemoglobin 16.2 13.5-17.5 g/dL Hematocrit 46.5 41.0-53.0 % Mean Corpuscular Volume 84.9 80.0-100.0 fL Mean Corpuscular Hemoglobin 29.5 28.0-32.0 pg Mean Corpuscular Hemoglobin Concent 34.8 32.0-36.0 g/dL Red Cell Distribution Width 12.6 11.8-14.3 % Platelet Count 299 140-450 10^3/uL Mean Platelet Volume 7.4 6.9-10.8 fL Neutrophils (%) (Auto) 94.3 H 37.0-80.0 % Lymphocytes (%) (Auto) 3.0 L 10.0-50.0 % Monocytes (%) (Auto) 2.3 0.0-12.0 % Eosinophils (%) (Auto) 0.2 0.0-7.0 % Basophils (%) (Auto) 0.2 0.0-2.0 % Neutrophils # (Auto) 14.2 H 1.6-8.6 10 ^3/uL Lymphocytes # (Auto) 0.4 0.4-5.4 10 ^3/uL Monocytes # (Auto) 0.3 0-1.3 10 ^3/uL Eosinophils # (Auto) 0 0-0.8 10 ^3/uL Basophils # (Auto) 0 0-0.2 10 ^3/uL Nucleated Red Blood Cells 0.1 % Sodium Level 135 L 136-145 mmol/L Potassium Level 5.7 *H 3.5-5.1 mmol/L Chloride Level 102 98-107 mmol/L Carbon Dioxide Level 28 20-31 mmol/L Anion Gap 5 5-15 Blood Urea Nitrogen 11 9-23 mg/dL Creatinine 1.05 0.700-1.30 mg/dL Glomerular Filtration Rate Calc 104 >90 mL/min BUN/Creatinine Ratio 10.5 10.0-20.0 Serum Glucose 158 H 74-106 mg/dL Lactic Acid Level 1.4 0.4-2.0 mmol/L Calcium Level 10.3 8.7-10.4 mg/dL CHEST RADIOGRAPH FINDINGS: Lines and Tubes: None Lungs: Lung volumes are low with mild bibasilar subsegmental atelectasis. Pleura: No effusion. No pneumothorax. Cardiomediastinal contours: Unremarkable Bones: Unremarkable IMPRESSION: Low lung volumes. Mild bibasilar subsegmental atelectasis. Assessment/Plan Assessment/Plan Assessment: Opiate overdose, Acute hypoxic respiratory failure, Possible aspiration pneumonia, Polysubstance abuse, Leucocytosis, Anxiety, Drug induced psychosis, Plan: Admit to Tele, IV antibiotics, IV hydration, Chest X-ray tomorrow morning, Social service consult, Supplemental oxygen as needed, Breathing treatments as needed, UA, UDS, Home medications reconciled, Plan discussed with: Patient My Orders Orders - MARCIAL LENNON Procedure Category Date Status Time Admit ADMIT 08/22/24 Verified 09:14 Code Status CODE 08/22/24 Verified 09:14 Ondansetron Hcl PHA 08/22/24 Verified (Zofran) 09:[address] [facility] 08/22/24 Verified Capsule (Colace 09:15 Complete Blood Count LAB 08/23/24 Verified 04:00 Comprehensive LAB 08/23/24 Verified Metabolic Panel 04:00 Condition: Critical [facility] 08/22/24 Verified 09:[address] [facility] 08/22/24 Verified (Tylenol Tablet) 09:[address] [facility] 08/22/24 Verified Sublingual (Ntrostat 09:[address] [facility] 08/22/24 Verified Injection 09:15 Stat Ekg For Chest [facility] 08/22/24 Verified Pain 09:14 Notify Md Of Changes [facility] 08/22/24 Verified From Base 09:14 Cryptologic Technician Technical For [facility] 08/22/24 Verified 24 Hours 09:14 Emergency Dysrhythmia [facility] 08/22/24 Verified Protocol 09:14 Rhythm Strips Once [facility] 08/22/24 Verified Every Shift 09:14 Oxygen By Nasal RT 08/22/24 Verified Cannula 09:14 Regular Diet DIET 08/22/24 Verified Breakfast Azithromycin 500mg/ PHA 08/22/24 Verified 250ml (Zithromax 50 10:00 Cefepime 1 Gm PHA 08/22/24 Verified 10:00 Date of Service: Aug 22, 2024 Billing Provider: MARCIAL LENNON Common Visit Codes: [id number] INP/OBS CARE (HIGH) MARCIAL LENNON Aug 22, 2024 09:43
[2024-08-22 10:00] LABS: Urine Bacteria None Seen /hpf (None Seen)
[2024-08-22] MEDS ORDERED: CEFEPIME 1GM/ 50ML 50 ML IV SCH (10:00)
[2024-08-22 10:15] LABS: Urine Blood Negative /uL (Negative); Urine Clarity Clear (Clear); Urine Color Light-Yellow (Yellow); Urine Protein, UAD Negative (Negative); Urine Specific Gravity 1.018 (1.001-1.035); Urine Squamous Epithelial Cell None Seen /hpf (<5); Urine Urobilinogen Normal (Negative); Urine WBC < 1 /HPF (0-3)
[2024-08-22 10:24] LABS: Benzodiazephine Screen, Urine Neg (NEGATIVE)
[2024-08-22 10:25] LABS: Amphetamine Screen, Urine Neg (NEGATIVE); Barbiturate Scree,Urine Neg (NEGATIVE); Cannabinoid Screen, Urine Pos (NEGATIVE); Cocaine Screen, Urine Neg (NEGATIVE); Opiate Scree,Urine Neg (NEGATIVE); Phencyclidine Screen, Urine Neg (NEGATIVE)
[2024-08-22 10:27] VITALS: BP 120/80; PULSE 119; RESP 16; TEMP 97.9; O2SAT 95
[2024-08-22] MEDS ORDERED: OLAN1TAB19 PO (11:01)
[2024-08-22] MEDS ORDERED: SERT-289 PO (11:01)
[2024-08-22] MEDS: CEFEPIME 2GM/50ML NS 50 ML IV SCH (14:30)
[2024-08-22] MEDS: OLANZapine 5 MG TAB PO SCH (17:48)
[2024-08-22 19:41] VITALS: PULSE 91; RESP 11; O2SAT 97
[2024-08-22] MEDS: ALBUTEROL SULF 2.5 MG/0.5ML(0.5%) NEB SOLN NEB PRN (20:22)
[2024-08-22 20:23] VITALS: PULSE 89; RESP 20; O2SAT 91
[2024-08-22] MEDS: IPRATROPIUM BROM 0.5 MG/2.5ML INH SOL NEB PRN (20:23)
[2024-08-22 20:31] VITALS: PULSE 81; RESP 18; O2SAT 96
[2024-08-22] MEDS: SERTRALINE HCL 50 MG TAB PO SCH (21:19)
[2024-08-22 23:07] VITALS: BP 121/66; PULSE 70; RESP 16; TEMP 98.3; O2SAT 93
[2024-08-22 23:15] VITALS: BP 121/66; PULSE 70; RESP 18; TEMP 98.6; O2SAT 97; O2SAT 98
[2024-08-23] VITALS (13 sets, daily range): BP systolic 97–144; BP diastolic 51–73; PULSE 50–84; RESP 15–20; TEMP 97.1–99.1; O2SAT 90–98
--- NOTE | 2024-08-23 07:17 | DVH ---
EXAM: XR Chest, 1 View CLINICAL INDICATION: SOB TECHNIQUE: Frontal view of the chest. COMPARISON: XY CHEST PORTABLE on DOS: 08/21/24, XY CHEST PORTABLE on DOS: 08/20/24 FINDINGS: LUNGS AND PLEURAL SPACES: Left basilar atelectasis or pneumonia. No pneumothorax. HEART: Unremarkable. No cardiomegaly. MEDIASTINUM: Unremarkable. Normal mediastinal contour. BONES/JOINTS: Unremarkable. No acute fracture. OTHER FINDINGS: . IMPRESSION: Left basilar atelectasis or pneumonia.
[2024-08-23] MEDS: VANCOMYCIN 1GM/250ML KIT 200 ML IV ONE (07:18)
[2024-08-23 07:25] LABS: Basophils # (auto) 0 10 ^3/uL (0-0.2); Basophils % (auto) 0.5 % (0.0-2.0); Eosinophils # (auto) 0.1 10 ^3/uL (0-0.8); Eosinophils % (auto) 1.2 % (0.0-7.0); Hematocrit 39.8 % (41.0-53.0); Lymphocytes # (auto) 2.1 10 ^3/uL (0.4-5.4); Lymphocytes % (auto) 20.7 % (10.0-50.0); Mean Corpuscular Hemoglobin 30.2 pg (28.0-32.0); Mean Corpuscular Hgb Conc. 35.2 g/dL (32.0-36.0); Mean Corpuscular Volume 85.7 fL (80.0-100.0); Monocytes # (auto) 0.9 10 ^3/uL (0-1.3); Monocytes % (auto) 8.8 % (0.0-12.0); Neutrophils % (auto) 68.8 % (37.0-80.0); Platelet Count (auto) 269 10^3/uL (140-450); Red Blood Cells 4.64 10^6/uL (4.5-5.90); Red Cell Distribution Width 12.9 % (11.8-14.3); White Blood Cell 10.1 10^3/uL (4.4-10.8)
[2024-08-23 07:39] LABS: Alkaline Phosphatase 56 U/L (46-116); Anion Gap 6 (5-15); BUN/Creatinine Ratio 14.6 (10.0-20.0); Blood Urea Nitrogen 12 mg/dL (9-23); Calcium 9.6 mg/dL (8.7-10.4); Carbon Dioxide 29 mmol/L (20-31); Chloride 104 mmol/L (98-107); Potassium 4.1 mmol/L (3.5-5.1); Sodium 139 mmol/L (136-145)
[2024-08-23 07:40] LABS: Albumin 4.2 g/dL (3.2-4.8); Aspartate Aminotransferase 26 U/L (13-40); Bilirubin, Total 0.8 mg/dL (0.2-1.0)
[2024-08-23 07:45] LABS: Alanine Aminotransferase 61 U/L (7-40); Glucose 129 mg/dL (74-106)
[2024-08-23] MEDS: AZITHROMYCIN 500MG/ 250ML 250 ML IV SCH (09:10)
--- NOTE | 2024-08-23 17:10 | DVHDS2 ---
Discharge Summary Date of Admission Aug 22, 2024 at 09:14 Date of Discharge: Aug 23, 2024 Labs/Diagnostic Data: Laboratory Results Test 08/23/24 06:16 08/22/24 09:00 08/22/24 06:07 08/22/24 05:11 White Blood Count 10.1 10^3/uL (4.4-10.8) Red Blood Count 4.64 10^6/uL (4.5-5.90) Hemoglobin 14.0 g/dL (13.5-17.5) Hematocrit 39.8 % (41.0-53.0) Mean Corpuscular Volume 85.7 fL (80.0-100.0) Mean Corpuscular Hemoglobin 30.2 pg (28.0-32.0) Mean Corpuscular Hemoglobin Concent 35.2 g/dL (32.0-36.0) Red Cell Distribution Width 12.9 % (11.8-14.3) Platelet Count 269 10^3/uL (140-450) Mean Platelet Volume 7.5 fL (6.9-10.8) Neutrophils (%) (Auto) 68.8 % (37.0-80.0) Lymphocytes (%) (Auto) 20.7 % (10.0-50.0) Monocytes (%) (Auto) 8.8 % (0.0-12.0) Eosinophils (%) (Auto) 1.2 % (0.0-7.0) Basophils (%) (Auto) 0.5 % (0.0-2.0) Neutrophils # (Auto) 7.0 10 ^3/uL (1.6-8.6) Lymphocytes # (Auto) 2.1 10 ^3/uL (0.4-5.4) Monocytes # (Auto) 0.9 10 ^3/uL (0-1.3) Eosinophils # (Auto) 0.1 10 ^3/uL (0-0.8) Basophils # (Auto) 0 10 ^3/uL (0-0.2) Nucleated Red Blood Cells 0.0 % Sodium Level 139 mmol/L (136-145) Potassium Level 4.1 mmol/L (3.5-5.1) Chloride Level 104 mmol/L (98-107) Carbon Dioxide Level 29 mmol/L (20-31) Anion Gap 6 (5-15) Blood Urea Nitrogen 12 mg/dL (9-23) Creatinine 0.82 mg/dL (0.700-1.30) Glomerular Filtration Rate Calc 128 mL/min (>90) BUN/Creatinine Ratio 14.6 (10.0-20.0) Serum Glucose 129 mg/dL (74-106) Calcium Level 9.6 mg/dL (8.7-10.4) Total Bilirubin 0.8 mg/dL (0.2-1.0) Aspartate Amino Transferase (AST) 26 U/L (13-40) Alanine Aminotransferase (ALT) 61 U/L (7-40) Alkaline Phosphatase 56 U/L (46-116) Total Protein 7.0 g/dL (5.7-8.2) Albumin 4.2 g/dL (3.2-4.8) Urine Color Light-yellow (Yellow) Urine Clarity Clear (Clear) Urine pH 7.0 (5.0-9.0) Urine Specific [place] 1.018 (1.001-1.035) Urine Protein Negative (Negative) Urine Ketones Negative (Negative) Urine Blood Negative /uL (Negative) Urine Nitrite Negative (Negative) Urine Bilirubin Negative (Negative) Urine Urobilinogen Normal mg/dL (Negative) Urine Leukocyte Esterase Negative /uL (Negative) Urine RBC <1 /hpf (0 - 3) Urine Microscopic WBC < 1 /HPF (0-3) Urine Squamous Epithelial Cells None seen /hpf (<5) Urine Bacteria None seen /hpf (None Seen) Urine Glucose 3+ mg/dL (Normal) Urine Opiates Screen Neg (NEGATIVE) Urine Fentanyl Screen Pos (NEGATIVE) Urine Barbiturates Screen Neg (NEGATIVE) Urine Phencyclidine Screen Neg (NEGATIVE) Urine Amphetamines Screen Neg (NEGATIVE) Urine Benzodiazepines Screen Neg (NEGATIVE) Urine Cocaine Screen Neg (NEGATIVE) Urine Cannabinoids Screen Pos (NEGATIVE) POC Glucose 171 mg/dl (70-106) Lactic Acid Level 1.4 mmol/L (0.4-2.0) Other Laboratory Tests 08/23/24 06:16 Brief Hx & Hospital Course: HPI: Alaina Aaron is a 19-year-old male with past medical history of anxiety and drug induced psychosis, who came in for a fentanyl overdose. Family states they found him unconscious in his room with agonal respirations. They initiated CPR and called EMS. When EMS arrived his oxygenation was in the 70sm Narcan was given, and patient began to respond. He was placed on 15L nonrebreather and brought to ER. In ER patient received another dose of Narcan. ER attempted multiple times to wean patient off supplemental oxygen without success. On assessment patient is now A&O x 4, able to tell me that he remembers snorting fentanyl, taking a shower, then blacking out in bed. He states he has just started trying fentanyl this week. He last used marijuana last week, and methamphetamines about 2 months ago. Also states he is a current cigarette smoker and uses nicotine vape daily. I spoke with the patient's Mother. She states that he use to methamphetamines, and was sober for about 1 year. He now lives with his Grandmother, so she is not around him all the time. Patient has been seen here twice in the last 2 weeks for fentanyl overdose. summary: Patient history of drug abuse and recently tried fentanyl and had overdosed. EMS was called and given Narcan, given another Narcan in ED. patient was requiring oxygen to maintain saturations up to 15 L with non-rebreather. Patient admitted for opioid overdose and acute hypoxic respiratory failure due to former. After Narcan patient improves and becomes A&O x4 but still lethargic and sleepy in requiring oxygen. On initial lab work patient also has leukocytosis, neutrophilia, hyperkalemia but no lactic acidosis. On urine toxicology screen patient was positive for fentanyl and cannabinoids. UA is concerning for +3 glucose otherwise normal. On chest history patient has low lung volumes and bibasilar atelectasis and/or pneumonia. Patient is observed overnight allowing for detox and washout. On a.m. eval on 08/23 patient is A&O x4, tolerating p.o., no nausea and vomiting, bowel sounds present and passing gas, ambulating without falls. Patient denies any SI or HI. Patient advised to seek rehab and/or addiction groups/addiction Psychiatry. Patient is stable for discharge as per plan below. Diagnosis: Acute hypoxic respiratory failure due to Opiate overdose, resolved aspiration pneumonia, Possible suicide ideations ruled out, Polysubstance abuse, Leucocytosis, Anxiety, Drug induced psychosis, Discharge plan: Take Augmentin 875 mg twice daily for 5 days Hold all drug abuse, counseled thoroughly. If need patient to seek out rehab versus addiction Psychiatry through PCP Follow up with PCP . PCP to make referral to addiction psychiatry. Continue other home medications Condition at Discharge: Fair Final Diagnosis/Problems List Acute hypoxic respiratory failure due to Opiate overdose, resolved aspiration pneumonia, Possible suicide ideations ruled out, Polysubstance abuse, Leucocytosis, Anxiety, Drug induced psychosis, Discharge Disposition: Home Discharge Instruct/Medications Diet: Regular Activity: No Restrictions, As Tolerated Follow Up/Referral: pcp Medications: below Discharge Statement: "Patient was advised to return to the ER or call 911 if any headaches, dizziness, shortness of breath, chest pain, abdominal pain, bleeding, fevers, or worsening of medical condition. Patient was counseled about treatment plan, medications, possible side effects, patientverbalized understanding. All questions were answered to the best of my ability. This discharge took greater then 30 minutes in planning, reviewing documentation, counseling the patient, and discussing with other team members." Date of Service: Aug 23, 2024 Billing Provider: GISELA LOYD MD Common Visit Codes: 10353-IQZ/OBS DISCH DAY >30min GISELA LOYD MD Aug 23, 2024 17:10
[2024-08-23] MEDS ORDERED: AUG875T PO (17:11)
== END 2024-08-23 23:00 | disposition home or self-care (01) | DRG 812 ==
LOC: EDBD 22:39 → ER 22:39 → OVERFLOW 08-22 09:14 → TELE-WESTW 08-22 09:21
PROVIDERS: ADMIT Student in an Organized Health Care Education/Training Program; ATTEND Student in an Organized Health Care Education/Training Program
DX: T40.2X1A Poisoning by other opioids, accidental (unintentional), initial encounter (principal); J96.01 Acute respiratory failure with hypoxia; J69.0 Pneumonitis due to inhalation of food and vomit; F17.290 Nicotine dependence, other tobacco product, uncomplicated; F41.9 Anxiety disorder, unspecified; E87.5 Hyperkalemia; E66.9 Obesity, unspecified; F19.959 Other psychoactive substance use, unspecified with psychoactive substance-induced psychotic disorder, unspecified; F17.210 Nicotine dependence, cigarettes, uncomplicated; D72.829 Elevated white blood cell count, unspecified; Z79.899 Other long term (current) drug therapy; Y92.89 Other specified places as the place of occurrence of the external cause; Z68.23 Body mass index [BMI] 23.0-23.9, adult
CPT/HCPCS: 36415; 71045; 80048; 80053; 80307; 81001; 82962; 83605; 85025; 87040; 87081; 94640; 96374; 96375; 99291; 99292; G0378; J0692; J1815; J2405